=== PATIENT | female | born 1990 | race Caucasian/White ===

== ENCOUNTER 2024-02-25 07:19 | Emergency (ER) | payer BC ==
[~2024-02-25] VITALS: Ht 167.6 cm; Wt 61.2 kg
[2024-02-25] MEDS ORDERED: LEVO50TA5 PO (07:31)
[2024-02-25] MEDS ORDERED: HOME MED LIST COMPLETE! XX SCH (09:00)
[2024-02-25 09:29] LABS: BASO % 0.2 % (0.0-1.0); EOS % 0.3 % (0.0-3.0); HEMATOCRIT 37.4 % (36.0-47.0); HEMOGLOBIN 12.9 g/dl (12.0-15.5); LYMPH # 1.4 10^3/uL (1.5-5.0); LYMPH % 11.8 % (24.0-44.0); MEAN CORPUSCULAR HEMOGLOBIN 31.6 pg (27.0-33.0); MEAN CORPUSCULAR HGB CONC 34.5 g/dl (32.0-36.5); MEAN CORPUSCULAR VOLUME 91.7 fl (80.0-96.0); MONO # 0.7 10^3/uL (0.0-0.8); NEUTROPHILS # 9.7 10^3/uL (1.5-8.5); NEUTROPHILS % 81.3 % (36.0-66.0); PLATELET COUNT, AUTOMATED 233 10^3/uL (150-450); RED BLOOD COUNT 4.08 10^6/uL (4.00-5.40); WHITE BLOOD COUNT 11.9 10^3/uL (4.0-10.0)
[2024-02-25 09:50] LABS: BLOOD UREA NITROGEN 12 MG/DL (9-23); CALCIUM LEVEL 9.3 MG/DL (8.5-10.1); CARBON DIOXIDE LEVEL 27 MMOL/L (20-31); CHLORIDE LEVEL 105 MMOL/L (98-107); CREATININE FOR GFR 0.86 MG/DL (0.55-1.30); GLOMERULAR FILTRATION RATE > 60.0 (>60); GLUCOSE, FASTING 84 MG/DL (60-100); POTASSIUM SERUM 3.8 MMOL/L (3.5-5.1); SODIUM LEVEL 139 MMOL/L (136-145)
[2024-02-25] MEDS: CLINDAMYCIN 900 MG in IV 1 EA IV ONE (09:50)
[2024-02-25] MEDS: ACETAMINOPHEN 500 MG TAB PO ONE (10:36)
[2024-02-25] MEDS ORDERED: BACT800T5 PO (11:15)
[2024-02-25 11:23] VITALS: BP 119/81; TEMP 99; O2SAT 98
== END 2024-02-25 11:33 | disposition home or self-care (01) ==
LOC: M ED 07:19
DX: L03.313 Cellulitis of chest wall (principal); E03.9 Hypothyroidism, unspecified; Z88.0 Allergy status to penicillin; Z79.899 Other long term (current) drug therapy
CPT/HCPCS: 76604; 80048; 85025; 96365; 99284; J0737

== ENCOUNTER 2024-02-26 21:41 | Emergency (ER) | payer BC ==
[~2024-02-26] VITALS: Ht 167.6 cm; Wt 62.2 kg
[~2024-02-26 21:41] MED LIST: BACT800T5 PO; LEVO50TA5 PO
[2024-02-26] MEDS: KETOROLAC 30 MG/ML 1ML VIAL IV ONE (23:37)
[2024-02-27 00:10] LABS: BASO % 0.2 % (0.0-1.0); EOS # 0.2 10^3/uL (0.0-0.5); EOS % 1.9 % (0.0-3.0); HEMATOCRIT 33.1 % (36.0-47.0); HEMOGLOBIN 11.5 g/dl (12.0-15.5); LYMPH # 2.1 10^3/uL (1.5-5.0); LYMPH % 26.2 % (24.0-44.0); MEAN CORPUSCULAR HEMOGLOBIN 31.4 pg (27.0-33.0); MEAN CORPUSCULAR HGB CONC 34.7 g/dl (32.0-36.5); MEAN CORPUSCULAR VOLUME 90.4 fl (80.0-96.0); MONO # 0.5 10^3/uL (0.0-0.8); MONO % 6.2 % (2.0-8.0); NEUTROPHILS # 5.2 10^3/uL (1.5-8.5); NEUTROPHILS % 64.8 % (36.0-66.0); PLATELET COUNT, AUTOMATED 232 10^3/uL (150-450); RED BLOOD COUNT 3.66 10^6/uL (4.00-5.40); WHITE BLOOD COUNT 8.1 10^3/uL (4.0-10.0)
[2024-02-27 00:14] LABS: BLOOD UREA NITROGEN 11 MG/DL (9-23); CALCIUM LEVEL 8.8 MG/DL (8.5-10.1); CARBON DIOXIDE LEVEL 27 MMOL/L (20-31); CHLORIDE LEVEL 106 MMOL/L (98-107); CREATININE FOR GFR 0.92 MG/DL (0.55-1.30); ERYTHROCYTE SEDIMENTATION RATE 31 mm/hr (0-20); GLOMERULAR FILTRATION RATE > 60.0 (>60); GLUCOSE, FASTING 92 MG/DL (60-100); POTASSIUM SERUM 3.4 MMOL/L (3.5-5.1); SODIUM LEVEL 139 MMOL/L (136-145)
[2024-02-27 00:48] VITALS: BP 119/82; TEMP 97.6; O2SAT 99
== END 2024-02-27 01:54 | disposition home or self-care (01) ==
LOC: M ED 21:41
DX: L03.313 Cellulitis of chest wall (principal); E06.3 Autoimmune thyroiditis; Z88.0 Allergy status to penicillin; Z79.899 Other long term (current) drug therapy
CPT/HCPCS: 76604; 80048; 85025; 85652; 86140; 96374; 99284; J1885

== ENCOUNTER 2024-03-01 18:46 | Emergency (ER) | payer BC ==
[~2024-03-01] VITALS: Ht 167.6 cm; Wt 64.1 kg
[2024-03-01 18:48] VITALS: TEMP 97.8
[2024-03-01 20:09] LABS: BASO % 0.4 % (0.0-1.0); EOS # 0.2 10^3/uL (0.0-0.5); EOS % 2.8 % (0.0-3.0); HEMATOCRIT 34.2 % (36.0-47.0); HEMOGLOBIN 11.8 g/dl (12.0-15.5); LYMPH # 2.1 10^3/uL (1.5-5.0); LYMPH % 26.4 % (24.0-44.0); MEAN CORPUSCULAR HEMOGLOBIN 31.9 pg (27.0-33.0); MEAN CORPUSCULAR HGB CONC 34.5 g/dl (32.0-36.5); MEAN CORPUSCULAR VOLUME 92.4 fl (80.0-96.0); MONO # 0.4 10^3/uL (0.0-0.8); MONO % 4.9 % (2.0-8.0); NEUTROPHILS # 5.1 10^3/uL (1.5-8.5); PLATELET COUNT, AUTOMATED 261 10^3/uL (150-450); WHITE BLOOD COUNT 7.8 10^3/uL (4.0-10.0)
[2024-03-01 20:38] LABS: ALBUMIN 3.8 G/DL (3.2-5.2); ALKALINE PHOSPHATASE 56 U/L (35-104); ALT/SGPT 10 U/L (7.0-40); AST/SGOT < 8 U/L (<34); BILIRUBIN,DIRECT 0.1 MG/DL (<0.4); BILIRUBIN,TOTAL 0.4 MG/DL (0.3-1.2); BLOOD UREA NITROGEN 9 MG/DL (9-23); CALCIUM LEVEL 8.8 MG/DL (8.5-10.1); CARBON DIOXIDE LEVEL 26 MMOL/L (20-31); CHLORIDE LEVEL 106 MMOL/L (98-107); CREATININE FOR GFR 1.05 MG/DL (0.55-1.30); GLOMERULAR FILTRATION RATE > 60.0 (>60); GLUCOSE, FASTING 76 MG/DL (60-100); POTASSIUM SERUM 3.9 MMOL/L (3.5-5.1); SODIUM LEVEL 140 MMOL/L (136-145); TOTAL PROTEIN 6.6 G/DL (5.7-8.2)
[2024-03-02] MEDS: LIDOCAINE W/EPINEPHRINE 1% 20ML VIAL SC ONE (00:45)
[2024-03-02] MEDS: DALBAVANCIN 1,500 MG in D5W 250 ML IV ONE (02:27)
[2024-03-02 03:08] VITALS: BP 123/73; O2SAT 100
== END 2024-03-02 03:09 | disposition home or self-care (01) ==
LOC: EEVIPCON 18:46 → M ED 18:46
DX: L03.311 Cellulitis of abdominal wall (principal); L02.211 Cutaneous abscess of abdominal wall; E06.3 Autoimmune thyroiditis; Z88.0 Allergy status to penicillin; Z79.899 Other long term (current) drug therapy
CPT/HCPCS: 10060; 76604; 80048; 80076; 85025; 87070; 87077; 87186; 96365; 96372; 99284; J0665; J0875

== ENCOUNTER 2024-03-28 07:30 | Emergency (ER) | payer BC ==
[~2024-03-28] VITALS: Ht 167.6 cm; Wt 61.9 kg
[2024-03-28] MEDS ORDERED: PRED20TA PO (07:54)
[2024-03-28 08:23] VITALS: BP 117/83; TEMP 97.7; O2SAT 100
== END 2024-03-28 08:24 | disposition home or self-care (01) ==
LOC: M ED 07:30
DX: R21 Rash and other nonspecific skin eruption (principal); E03.9 Hypothyroidism, unspecified; Z88.0 Allergy status to penicillin; Z79.52 Long term (current) use of systemic steroids; Z79.899 Other long term (current) drug therapy

== ENCOUNTER 2024-04-25 01:22 | Emergency (ER) | payer BC ==
[~2024-04-25] VITALS: Ht 167.6 cm; Wt 60.8 kg
[~2024-04-25 01:22] MED LIST changes: +PRED20TA PO
[2024-04-25 01:29] VITALS: BP 123/91; TEMP 97.6; O2SAT 98
== END 2024-04-25 03:00 | disposition left against medical advice (07) ==
LOC: M ED 01:22
DX: Z53.21 Procedure and treatment not carried out due to patient leaving prior to being seen by health care provider (principal)

== ENCOUNTER 2025-01-28 09:29 | Emergency (ER) | payer BC, OTHER ==
[~2025-01-28] VITALS: Ht 167.6 cm; Wt 62.1 kg
[2025-01-28] MEDS ORDERED: CLEO150C PO (11:12)
[2025-01-28 11:20] VITALS: BP 122/89; TEMP 97.4; O2SAT 98
== END 2025-01-28 11:21 | disposition home or self-care (01) ==
LOC: M ED 09:29
DX: L02.413 Cutaneous abscess of right upper limb (principal); E03.9 Hypothyroidism, unspecified; F17.210 Nicotine dependence, cigarettes, uncomplicated; F12.10 Cannabis abuse, uncomplicated; Z88.0 Allergy status to penicillin; Z79.2 Long term (current) use of antibiotics; Z79.899 Other long term (current) drug therapy